=== PATIENT | male | born 1975 | race Caucasian/White ===

== ENCOUNTER → 2024-02-11 | Emergency (ER) | payer SELFPAY ==
[~2024-02-11] VITALS: Ht 162.6 cm; Wt 77.1 kg
[~2024-02-11] MED LIST: BACI-418 TP; BACITRACIN OINT 500 UNITS/GM PKT TP ONE; CEPH-588 PO; IBUP-2213 PO; LIDOCAINE 2% 1000 MG/50 ML VIAL INJ ONE; LIDOCAINE MPF 1% 10 MG/ML VIAL INJ ONE
[2024-02-11 19:03] VITALS: BP 130/87; PULSE 88; RESP 16; TEMP 98.3; O2SAT 88
[2024-02-11 19:15] VITALS: BP 130/87; PULSE 88; RESP 16; TEMP 98.3
[2024-02-11] MEDS: ACETAMINOPHEN 325 MG TAB PO ONE (19:53)
[2024-02-11 20:17] VITALS: O2SAT 99
== END | disposition home or self-care (01) ==
LOC: MED 18:54
DX: S91.112A Laceration without foreign body of left great toe without damage to nail, initial encounter (principal); Z79.899 Other long term (current) drug therapy; X58.XXXA Exposure to other specified factors, initial encounter; Y93.89 Activity, other specified; Y92.89 Other specified places as the place of occurrence of the external cause; Y99.8 Other external cause status
CPT/HCPCS: 73630; 90471; 90715; 99283; J2003; Q0092